=== PATIENT | female | born 1945 | race Caucasian/White ===

== ENCOUNTER 2016-03-03 09:08 | Inpatient (IN) | payer OTHER, MEDICARE ==
[~2016-03-03] VITALS: Ht 154.9 cm; Wt 50.8 kg
--- NOTE | ~2016-03-03 | D ---
[facility] Kaylyn [place] [address] DISCHARGE SUMMARY Name: MARK VILLANUEVA Room #: 213-P [facility] IN M.R.#: [id number] Admission: 03/03/16 Attend Phys: Betina Hall MD Discharge: 03/04/16 Date of : 43 Report #: [id number] THIS REPORT FOR: //name// CC: Betina Stratton [facility] TYPE OF DICTATION: Discharge summary. After jnyr-wc-ycal encounter, I did see the patient and examined her on the day of discharge. DISCHARGE DIAGNOSES: 1. Chest pain, resolved. 2. History of transient ischemic attacks. 3. Hypertension. 4. Dyslipidemia. 5. Rheumatoid arthritis. 6. Fibromyalgia. 7. Sjogren's syndrome. DISCHARGE MEDICATIONS: See discharge summary. HOSPITAL COURSE: The patient was admitted to the hospital secondary to chest pain. The patient was on telemetry and she underwent serial EKGs and troponin, which came back negative. Cardiology was consulted and discussed the case with the patient. She likes to do a test to be sure that everything is okay. Today morning, she went to the medical laboratory scientist and her cath angiogram came back negative. There was no problem with her heart. So, the patient is going home today and to follow with her primary care doctor for possible GERD. <ELECTRONICALLY SIGNED> By: Betina Hall MD 03/13/16 1708 1042 1201 Betina Hall MD /nt
--- NOTE | ~2016-03-03 | H ---
[facility] [place] [address] HISTORY AND PHYSICAL Name: MARK VILLANUEVA Room #: 213-P ADM IN M.R.#: [id number] Admission: 03/03/16 Attend Phys: Betina Hall MD Discharge: Date of : 43 Report #: [id number] THIS REPORT FOR: //name// CC: Betina Stratton [facility] DATE OF SERVICE: 03/03/2016 TYPE OF DICTATION: Admission H and P after nsmo-[id number]-mgxr encounter. CHIEF COMPLAINT: Chest pain. HISTORY OF PRESENT ILLNESS: A 70-year-old female with multiple medical problems, presented to the ER complaining of chest pain and short of breath. This was going on for 3 weeks, but yesterday she woke up in middle of the night with retrosternal crushing chest pain radiating to the left arm, accompanied by short of breath and sweating. The patient did not have any history of cardiovascular disease, but she is hypertensive and she has a history of transient ischemic attacks. She said that her heart was racing strangely also during that episode and she tried to come down to see if this will go away. The pain was started to decrease, but it is still there. REVIEW OF SYSTEMS: Except that mentioned in HPI, all other systems are negative. PAST MEDICAL HISTORY: Include: 1. History of transient ischemic attacks in younger age. 2. Hypertension. 3. Dyslipidemia. 4. Rheumatoid arthritis. 5. Fibromyalgia. 6. Sjogren's syndrome. PAST SURGICAL HISTORY: Includes: 1. Hysterectomy. 2. Tonsillectomy. 3. Rotator cuff surgery. FAMILY HISTORY: Mother has rheumatoid arthritis. Father of coronary artery disease and CVA. SOCIAL HISTORY: She does not smoke or drink or doing any drugs. MEDICATIONS: See admission reconciliation sheet. ALLERGIES: TYLENOL, CIPRO, IBUPROFEN, INDOMETHACIN, LIDOCAINE, MORPHINE, [facility] [address] [place] [address] HISTORY AND PHYSICAL Name: MARK VILLANUEVA Room #: [facility]#: [id number] Admission: 03/03/16 Attend Phys: Betina Hall MD Discharge: Date of : 43 Report #: [id number] NAPROXEN. PHYSICAL EXAMINATION: GENERAL: She is alert, oriented, not in acute distress. VITAL SIGNS: Her temperature 36.8, pulse is 75, respirations 20, blood pressure 161/59. HEENT: PERRLA. Intact extraocular muscles. No icterus. NECK: Supple, no JVD, no bruit, no thyroid. CHEST: Good air entry, both sides. Normal respiratory effort. CARDIOVASCULAR: Regular rate and rhythm. No murmur, rub or gallop. ____ sounds, normal S1 and S2. ABDOMEN: Lax, nontender, positive bowel sounds, no organomegaly appreciated. EXTREMITIES: No cyanosis, clubbing or edema. NEUROLOGIC: Cranial nerves 2-12 are intact. No focal neurological signs. MUSCULOSKELETAL: Normal range of movement and normal inspection of all joints. SKIN: Intact, warm. No ulcers or rashes. PSYCHIATRIC: Normal affect, mood and judgment. LABORATORY DATA: White count is 5.8, hemoglobin 12.3, hematocrit 37.7, normal differential except eosinophilia 7.6%. BUN 22, creatinine 0.9, glucose 100, calcium 9.4. Troponin 0.04. ProBNP is 74. RADIOLOGICAL STUDIES: Chest x-ray: No significant abnormalities. ASSESSMENT AND PLAN: 1. Chest pain. The patient is going to be admitted to telemetry. Her cardiac enzymes and EKGs serial x 3 will be done. She is going to be on a monitor for now. Cardiology already consulted to see the patient and evaluate her. 2. Hypertension, seems to be in good range. We are going to continue home medicines for that. 3. Hyperlipidemia. She has been on statins with no side effects, so we are going to continue that. 4. History of transient ischemic attacks. The patient is going control her blood pressure ____ and aspirin at the same time. 5. The patient is full code. 6. Gastrointestinal and deep venous thrombosis prophylaxis. <ELECTRONICALLY SIGNED> By: Betina Hall MD 03/03/16 1518 1221 1421 Betina Hall MD /nt
--- NOTE | ~2016-03-03 | EKG ---
[address] [address] ELECTROCARDIOGRAM REPORT Name: MARK VILLANUEVA Room #: 213-P [facility] IN .R.#: [id number] Admission: 03/03/16 Attend Phys: Betina Hall MD Discharge: Date of : 43 Report #: [id number] THIS REPORT FOR: //name// [facility] ED Test Date: 2016-03-03 Test Time: 09:12:03 Pat Name: MARK VILLANUEVA Department: Room: 213 Gender: F Firer Kiln: SUJATHA : 1945 Requested By: Marco Antonio De Souza Order Number: [id number] MD: Christo Moser Measurements Intervals [place] Rate: 77 P: 67 ND: 145 QRS: 51 QRSD: 87 T: 42 QT: 355 QTc: 402 Interpretive Statements Sinus rhythm No significant abnormality No previous ECG available for comparison Electronically Signed On 03-04-2016 8:50:00 [employer] by Christo Moser [email or web address] <ELECTRONICALLY SIGNED> By: Christo Moser MD, [facility] 03/04/16 0850 0912 1 Christo Moser MD, FACC /EPI
--- NOTE | ~2016-03-03 | HC ---
[facility] [place] [address] CONSULTATION Name: MARK VILLANUEVA Room #: 213-P [facility] IN ..#: [id number] Admission: 03/03/16 Attend Phys: Betina Hall MD Discharge: Date of : 43 Report #: [id number] THIS REPORT FOR: //name// CC: Betina Genaoe [facility] DATE OF SERVICE: 03/03/2016 INDICATION: Chest pain. HISTORY OF PRESENT ILLNESS: This is a pleasant 70-year-old female presenting with chest pains and shortness of breath. 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 Last evening, she had severe crushing pain in the substernal area, radiating down the left arm and into the back area. It was associated with shortness of breath and diaphoresis. She presented to the ER for an evaluation. There is no history of fever, chills, PND, or orthopnea. PAST MEDICAL HISTORY: History of TIA, hypertension, hyperlipidemia, rheumatoid arthritis, and Sjogren syndrome. ALLERGIES: Include TYLENOL, CIPRO, IBUPROFEN INDOMETHACIN, LIDOCAINE, MORPHINE, . MEDICATIONS: Include amlodipine 5 mg daily, aspirin 81 mg daily, simvastatin 40 mg daily, Carafate, and trazodone. SOCIAL HISTORY: Negative for tobacco use. FAMILY HISTORY: Negative for premature CAD. REVIEW OF SYSTEMS: A full 10-point review of systems performed. Only the pertinent positives and negatives as described in the HPI. PHYSICAL EXAMINATION: VITAL SIGNS: Blood pressure 130/70. Heart is 77 beats per minute. GENERAL APPEARANCE: This is a well-developed, well-nourished female in no acute respiratory distress. HEAD AND EYES: Normocephalic. Sclerae are anicteric. ENT: Oral mucosa moist. NECK: Supple. LUNGS: Clear to auscultation. CARDIAC: Regular rate and rhythm, S1 and S2 positive. ABDOMEN: Soft. EXTREMITIES: No major joint deformities. NEUROLOGIC: Alert and oriented times 3. [facility] [address] [place] [address] CONSULTATION Name: MARK VILLANUEVA Lei Room #: 213-P [facility] IN M.R.#: [id number] Admission: 03/03/16 Attend Phys: Betina Hall MD Discharge: Date of : 43 Report #: [id number] ECG reveals sinus rhythm. LABORATORY VALUES: White count is 5.8 and hemoglobin is 12.3. Sodium is 140 and creatinine is 0.9. Troponin is negative. ASSESSMENT: 1. Unstable angina, her symptoms are worrisome for new onset angina. The initial troponin level is unremarkable and the ECG does not show any acute ST segment changes. Her symptoms have been present for the last three weeks, now occurring at rest. We discussed the pros and cons of noninvasive stress testing versus cardiac catheterization. The patient is concerned about a cardiac status and would like to proceed with a coronary angiogram. 2. Hypertension, continue with medications. 3. Hypercholesterolemia, continue with statin therapy. 4. Remote history of TIA, stable neurologically. 5. Rheumatoid arthritis. Thank you for allowing me to participate in the care of your patient. <ELECTRONICALLY SIGNED> By: New Van MD 03/04/16 0838 1531 0055 New Van MD /nt
--- NOTE | ~2016-03-03 | CATHLAB ---
[facility] Kaylyn Alcocer [place] [address] INVASIVE PROCEDURE REPORT Name: MARK VILLANUEVA Lei Room #: 213-P [facility]#: [id number] Admission: 03/03/16 Attend Phys: Betina Hall, Discharge: 03/04/16 Date of : 43 Date of Service: 03/04/16 0837 Report #: [id number] THIS REPORT FOR: //name// CC: Betina Drake MD DATE OF SERVICE: 03/04/2016 DATE OF SERVICE: 03/04/2016 INDICATIONS: Unstable angina. Full risks, benefits and alternatives of cardiac catheterization were explained to the patient. All questions were answered. Informed consent was obtained. The right groin area was prepped and draped in a sterile manner. Lidocaine was given subcutaneously. A 4-Luxembourgish sheath was inserted into the right femoral artery via modified Seldinger technique. CORONARY ANATOMY: 1. The left main artery is a large caliber vessel, with no flow-limiting lesions. 2. There is mild calcified area in the proximal LAD. The LAD travels down the anterior wall and wraps around the apex. There is only mild disease in the proximal segment, 20%. 3. Left circumflex artery is a moderate sized caliber vessel, dominant, as it supplies the distal PDA. There is only mild plaquing in the proximal segment of the left circumflex artery, 20%. The obtuse marginal arteries have no flow-limiting lesions. The RCA is a small, nondominant vessel with no flow-limiting lesions. A left ventriculogram was performed in the LOREDO projection revealing normal LV systolic function, ejection fraction of 60%. The LVEDP is 9 mmHg. There is no gradient across the outflow tract. IMPRESSION: 1. Mild disease in the LAD and left circumflex artery. 2. Dominant left circumflex artery. 3. Normal LV systolic function. 4. Recommend medical therapy. <ELECTRONICALLY SIGNED> By: New Van MD 03/05/16 0739 0837 0905 New Van MD /nt
[~2016-03-03 09:08] MED LIST: ADULT LOW DOSE81 MG PO; AMLODIPINE BESYL5 MG PO; CARAFATE 1 GM TA1 G1 PO; DESYREL50 MG PO; DHA100 MG PO; DICLOFENAC SODI75 M1 PO; FISHOIL; LOSARTAN-HCTZ1 EAC1 PO; MICARDIS40 MG; NABUMETONE 500500 M1; NEURONTIN 300300 M1 PO; NEXIUM40 MG; OMEPRAZOLE40 MG PO; OSTEO-BI-FLEX; TENEX; TYLENOL ARTHRI650 MG PO; VITAMIN E400 UNIT; ZOCOR 10 MG TAB10 MG PO
[2016-03-03 09:09] VITALS: BP 161/59
[2016-03-03 09:43] LABS: ABSOLUTE NEUTROPHILS 3.4 thou/uL (1.4-8.2); BASOPHILS 1.2 % (0.0-2.0); EOSINOPHILS 7.6 % (0.0-3.0); HEMATOCRIT 37.7 % (37.0-47.0); HEMOGLOBIN 12.3 gm/dL (12.0-15.0); LYMPHOCYTES 25.5 % (24.0-44.0); MCH 29.6 pg (26.0-34.0); MCHC 32.6 % (28.0-37.0); MCV 90.7 fL (80.0-100.0); MONOCYTES 7.5 % (1.0-8.0); PLATELET COUNT 266 thou/uL (150-400); POLYS 58.2 % (36.0-66.0); RBC 4.15 mil/uL (4.20-5.00); RDW 13.8 % (10.5-14.5); WBC 5.8 thou/uL (4.0-11.0)
[2016-03-03] MEDS ORDERED: SIMVASTATIN10 MG PO (09:43)
[2016-03-03] MEDS ORDERED: LOSARTAN-HCTZ1 EAC3 PO (09:43)
[2016-03-03] MEDS ORDERED: TRAZODONE HCL100 MG PO (09:44)
[2016-03-03] MEDS ORDERED: OMEPRAZOLE40 MG PO (09:44)
[2016-03-03] MEDS ORDERED: NORVASC5 MG PO (09:44)
[2016-03-03] MEDS ORDERED: CARAFATE 1 GM TA1 G1 PO (09:44)
[2016-03-03] MEDS ORDERED: GABAPENTIN800 M1 PO (09:45)
[2016-03-03] MEDS ORDERED: VITAMIN D3400 UNIT PO (09:45)
[2016-03-03] MEDS ORDERED: ASPIR 8181 MG PO (09:45)
[2016-03-03 09:46] LABS: MANUAL DIFF NO
[2016-03-03] MEDS ORDERED: CENTRUM SILVER1 EAC4 PO (09:46)
[2016-03-03] MEDS ORDERED: FISH OIL 1,001000 M2 PO (09:46)
[2016-03-03] MEDS ORDERED: SUPER B COMPLE1 EAC2 PO (09:46)
[2016-03-03 09:59] LABS: ANION GAP 8 mmol/L (7-16); BUN 22 mg/dL (7-18); CALCIUM 9.4 mg/dL (8.5-10.1); CHLORIDE 101 mmol/L (98-107); CO2 31 mmol/L (21-32); CREATININE 0.9 mg/dL (0.6-1.3); GLUCOSE 100 mg/dL (70-99); POTASSIUM 3.7 mmol/L (3.5-5.1); SODIUM 140 mmol/L (136-145)
[2016-03-03 10:12] LABS: NT-PRO BRAIN NAT PEPTIDE 74 pg/mL (<300); TROPONIN-I < 0.04 ng/mL (<0.04-0.07)
[2016-03-03 12:03] VITALS: BP 137/58
[2016-03-03 12:45] VITALS: BP 123/50
[2016-03-03] MEDS ORDERED: TYLENOL ARTHRI650 MG PO (13:31)
[2016-03-03] MEDS ORDERED: B COMPLEX # 11 EACH PO (13:35)
[2016-03-03 19:54] VITALS: BP 116/49
[2016-03-04] VITALS (11 sets, daily range): BP systolic 92–126; BP diastolic 44–62
[2016-03-04 02:47] LABS: HEMATOCRIT 38.4 % (37.0-47.0); HEMOGLOBIN 12.4 gm/dL (12.0-15.0); MCH 29.6 pg (26.0-34.0); MCHC 32.3 % (28.0-37.0); MCV 91.5 fL (80.0-100.0); RBC 4.19 mil/uL (4.20-5.00); RDW 13.7 % (10.5-14.5)
[2016-03-04 03:07] LABS: ALBUMIN 3.4 g/dL (3.4-5.0); CALCIUM 9.3 mg/dL (8.5-10.1); CREATININE 0.7 mg/dL (0.6-1.3); POTASSIUM 4.2 mmol/L (3.5-5.1); TOTAL BILIRUBIN 0.4 mg/dL (<0.1-1.0); TOTAL PROTEIN 6.6 g/dL (6.4-8.2)
[2016-03-04 04:29] LABS: APTT 25.1 Seconds (24.5-32.8); PROTIME 10.5 Seconds (9.3-11.4)
== END 2016-03-04 14:55 | disposition home or self-care (01) | DRG 287 ==
LOC: ER 09:08 → EROBS 10:46 → 2N 10:46
PROVIDERS: Hospitalist; Internal Medicine Cardiovascular Disease; Physician Assistant
PROC: 4A023N7 Measurement of Cardiac Sampling and Pressure, Left Heart, Percutaneous Approach (ICD-10-PCS; principal; 2016-03-04)
PROC: B2151ZZ Fluoroscopy of Left Heart using Low Osmolar Contrast (ICD-10-PCS; principal; 2016-03-04)
PROC: B2111ZZ Fluoroscopy of Multiple Coronary Arteries using Low Osmolar Contrast (ICD-10-PCS; principal; 2016-03-04)
DX: I25.110 Atherosclerotic heart disease of native coronary artery with unstable angina pectoris (principal); I10 Essential (primary) hypertension; E78.5 Hyperlipidemia, unspecified; M35.00 Sjogren syndrome, unspecified; M06.9 Rheumatoid arthritis, unspecified; E78.00 Pure hypercholesterolemia, unspecified; M79.7 Fibromyalgia; Z98.49 Cataract extraction status, unspecified eye; Z90.710 Acquired absence of both cervix and uterus; Z86.14 Personal history of Methicillin resistant Staphylococcus aureus infection; Z88.8 Allergy status to other drugs, medicaments and biological substances; Z88.1 Allergy status to other antibiotic agents; Z88.6 Allergy status to analgesic agent; Z91.040 Latex allergy status; Z86.73 Personal history of transient ischemic attack (TIA), and cerebral infarction without residual deficits; Z82.49 Family history of ischemic heart disease and other diseases of the circulatory system; Z82.3 Family history of stroke; Z82.61 Family history of arthritis
CPT/HCPCS: 10081

== ENCOUNTER → 2016-05-02 | Outpatient (CLI) | payer OTHER, MEDICARE ==
[~2016-05-02] VITALS: Ht 152.4 cm; Wt 50.3 kg
[~2016-05-02] MED LIST changes: +ASPIR 8181 MG PO; +B COMPLEX # 11 EACH PO; +CENTRUM SILVER1 EAC4 PO; +FISH OIL 1,001000 M2 PO; +GABAPENTIN800 M1 PO; +LOSARTAN-HCTZ1 EAC3 PO; +NORVASC5 MG PO; +SIMVASTATIN10 MG PO; +SUPER B COMPLE1 EAC2 PO; +TRAZODONE HCL100 MG PO; +VITAMIN D3400 UNIT PO
--- NOTE | ~2016-05-02 | HPC ---
[facility] [place] [address] PAIN MANAGEMENT CONSULTATION Name: MARK VILLANUEVA Room #: REG [facility]#: [id number] Admission: 05/02/16 Attend Phys: Dianelys Grant MD Discharge: Date of : 43 Report #: [id number] THIS REPORT FOR: //name// CC: Dianelys Drake MD DATE OF SERVICE: 05/02/2016 Primary care physician: Viral Drake MD FOLLOWUP COMPLAINT: The pain was greater than 50% better and over the last week noticed that it comes back. FOLLOWUP HISTORY: The patient is a 70-year-old female who has been seen in the pain clinic in the past because of pain in the neck with radiation down into the right shoulder, some anterior chest as well as into the deltoid of her right arm. She underwent an epidural steroid injection in January. She noted a significant improvement in her pain. She had no complications from the last procedure. The patient is expecting a grandchild in 3 days. She would like to undergo an epidural steroid injection so that she could engage in the payal of holding her grandbaby. The patient rates her pain as a 7-8. Pain is made worse when she is lifting, pulling and using her left hand. PHYSICAL EXAMINATION: Blood pressure 151/79, pulse 76, respiratory rate 12, room air saturation is 99%. The patient's height 152 cm, weight 50 kilograms. BMI 21. The patient has pain and discomfort involving the left neck with some pain up in the upper left neck area. She has pain and discomfort in the shoulders as well as some pain in this area of her scapula and pain down into the left arm and discomfort in her deltoid. IMPRESSION: Cervical radiculopathy, which improved greater than 80% after last cervical epidural steroid injection in January. RECOMMENDATIONS: We discussed treatment options with the patient. Risks and benefits of a cervical epidural steroid injection were again reviewed. Possible complications were discussed. The patient elects to proceed. PROCEDURE NOTE: The patient was placed in the prone position. Fluoroscopy was used to identify the C7-T1 interspace. This area had been sterilely prepped with Betadine and infiltrated with 0.25% bupivacaine. A total of 120 mg of triamcinolone was injected after appropriate placement of a 17-gauge Tuohy needle using the loss of resistance technique. The patient tolerated the procedure well. She was taken to the recovery room where she remained for an appropriate amount of time. She will follow up in [place] [address] PAIN MANAGEMENT CONSULTATION Name: MARK VILLANUEVA Room #: REG [facility].#: [id number] Admission: 05/02/16 Attend Phys: Dianelys Grant MD Discharge: Date of : 43 Report #: [id number] Total of 7 seconds fluoroscopy time was used. We would like to thank you for letting us participate in her care. We hope she continues to improve. <ELECTRONICALLY SIGNED> By: Dianelys Grant MD 05/15/16 0914 1248 1750 Dianelys Grant MD /nt
[2016-05-02 09:34] VITALS: BP 151/79
== END | disposition home or self-care (01) ==
LOC: PAIN 07:12
DX: M54.12 Radiculopathy, cervical region (principal)

== ENCOUNTER → 2016-08-13 | Outpatient (CLI) | payer OTHER, MEDICARE ==
[~2016-08-13] VITALS: Ht 152.4 cm; Wt 52.3 kg
--- NOTE | ~2016-08-13 | HPC ---
[facility] [place] [address] PAIN MANAGEMENT CONSULTATION Name: MARK VILLANUEVA Room #: REG [facility]#: [id number] Admission: 08/13/16 Attend Phys: Dianelys Grant MD Discharge: Date of : 43 Report #: [id number] THIS REPORT FOR: //name// CC: Dianelys Drake MD DATE OF SERVICE: 08/13/2016 PRIMARY CARE PHYSICIAN: Viral Drake MD She FOLLOWUP COMPLAINT: Pain improved after the last cervical epidural steroid injection, but still having pain in the left neck area and up into the back of the head. FOLLOWUP HISTORY: The patient is a 70-year-old female who has been seen in the pain clinic because of cervical radiculopathy. She underwent a cervical epidural steroid injection and the pain radiating down into her left arm has improved. She continues to have pain and discomfort in the left occipital area. Palpation in this area causes pain that radiates from her neck to the lateral portion of her temporal area. She rates this pain as a 6/10. She notes that this pain can be problematic with activities of daily living. Certain movements and pressures can exacerbate its discomfort. She would like to undergo treatment for this today. PHYSICAL EXAMINATION: Blood pressure 145/80, pulse 67, respiratory rate 20, room air saturation 91%. The patient has pain and discomfort in the left occipital area. Palpation in the area of the left occipital nerve causes a reproduction of pain in her neck, left side of the head and in the occipital area. This reproduces a significant component of the pain, which the patient has been experiencing at this juncture. IMPRESSION: 1. Occipital neuralgia, left side. 2. Cervical radiculopathy, improved by greater than 80% after last epidural steroid injection. 3. Hypertension. 4. Gastrointestinal complaints. Uses omeprazole. 5. Hypercholesterolemia. RECOMMENDATIONS: We discussed treatment options with the patient. Risks and benefits of an occipital injection for occipital neuralgia were discussed. Possible complications of the procedure were reviewed. The patient elects to proceed. PROCEDURE NOTE: The patient was placed in the prone position. The left [facility] [address] [place] [address] PAIN MANAGEMENT CONSULTATION Name: MARK VILLANUEVA Lei Room #: REG [facility]#: [id number] Admission: 08/13/16 Attend Phys: Dianelys Grant MD Discharge: Date of : 43 Report #: [id number] occipital area was sterilely prepped with a chlorhexidine solution and allowed to dry. A 25-gauge needle was then advanced in the left occipital area. A total of 10 mL of 0.5% bupivacaine and 40 mg triamcinolone was injected. The patient tolerated the procedure well. Pain decreased from 6 to 2 at the time of discharge. She will follow up in the future as needed. We would like to thank you for letting us participate in her care. We hope she continues to improve. <ELECTRONICALLY SIGNED> By: Dianelys Grant MD 08/14/16 0820 1301 2317 Dianelys Grant MD /nt
[2016-08-13 09:47] VITALS: BP 145/80
== END ==
LOC: PAIN 06:45
DX: M54.81 Occipital neuralgia (principal); M54.12 Radiculopathy, cervical region; I10 Essential (primary) hypertension; E78.00 Pure hypercholesterolemia, unspecified

== ENCOUNTER → 2016-10-03 | Outpatient (CLI) | payer OTHER, MEDICARE ==
[~2016-10-03] VITALS: Ht 157.5 cm; Wt 53.1 kg
--- NOTE | ~2016-10-03 | HPC ---
[facility] [address] [place] [address] PAIN MANAGEMENT CONSULTATION Name: MARK VILLANUEVA [facility] #: [facility] [id number] Admission: 10/03/16 Attend Phys: Dianelys Grant MD Discharge: Date of : 43 Report #: [id number] THIS REPORT FOR: //name// CC: Dianelys Drake MD DATE OF SERVICE: 10/03/2016 PRIMARY CARE PHYSICIAN: Viral Drake M.D. FOLLOWUP COMPLAINT: Pain was better by greater than 50% after the last injection, but is starting to recurred. FOLLOWUP HISTORY: The patient is a 70-year-old female who has been seen in the pain clinic because of cervical radiculopathy. She has undergone epidural steroid injections in the cervical area and gleaned benefit from that. She has now noted some recurrence of her pain. She is experiencing pain that radiates down into her left shoulder and has been experiencing some burning discomfort in this area. She noticed worsening of her pain with lifting over head, pulling, using her left arm as well as while driving. PHYSICAL EXAMINATION: VITAL SIGNS: The patient rates her pain as a 7/10. Blood pressure 137/69, pulse 75, respiratory rate 16 and room air saturation 97%. Height 5 feet 2 inches, weight 117 pounds and BMI is 21. MUSCULOSKELETAL: The patient has not fallen since we saw her last. She is experiencing pain and discomfort in the neck radiating down to the left shoulder with burning tenderness and aching. Pain is exacerbated when she posed with her left hand as well as when driving. IMPRESSION: 1. Cervical radiculopathy, which improved greater than 80% after the first cervical epidural steroid injection. 2. Hypertension. 3. Gastrointestinal complaints, continues to use omeprazole as well. 4. Hypercholesterolemia. RECOMMENDATIONS: We will proceed with a cervical epidural steroid injection. Risks and benefits of the injection were discussed and the patient elects to proceed. PROCEDURE NOTE: The patient was placed in the prone position. Fluoroscopy was used to identify the C7-T interspace. This area had been sterilely prepped with Betadine and infiltrated with 0.25% bupivacaine. A total of 120 mg triamcinolone was injected. The patient tolerated [place] [address] PAIN MANAGEMENT CONSULTATION Name: MARK VILLANUEVA Room #: [facility] [id number] Admission: 10/03/16 Attend Phys: Dianelys Grant MD Discharge: Date of : 43 Report #: [id number] were no complications. We would like to thank you for letting us participate in her care. We hope she continues to improve. By: 1657 1806 Dianelys Grant MD /nt
[2016-10-03 09:19] VITALS: BP 137/69
== END | disposition home or self-care (01) ==
LOC: PAIN 09-10 07:01
DX: M54.12 Radiculopathy, cervical region (principal); I10 Essential (primary) hypertension; K92.89 Other specified diseases of the digestive system; E78.00 Pure hypercholesterolemia, unspecified; Z88.8 Allergy status to other drugs, medicaments and biological substances; Z79.899 Other long term (current) drug therapy; Z91.040 Latex allergy status; Z79.82 Long term (current) use of aspirin; Z98.890 Other specified postprocedural states

== ENCOUNTER → 2017-02-20 | Outpatient (CLI) | payer OTHER, MEDICARE ==
[~2017-02-20] VITALS: Ht 157.5 cm; Wt 54.9 kg
--- NOTE | ~2017-02-20 | HPC ---
[facility] [address] [place] [address] PAIN MANAGEMENT CONSULTATION Name: MARK VILLANUEVA Room #: REG [facility] Agustin#: [id number] Admission: 02/20/17 Attend Phys: Dianelys Grant MD Discharge: Date of : 43 Report #: [id number] THIS REPORT FOR: //name// CC: Dianelys Drake MD DATE OF SERVICE: 02/20/2017 CHIEF COMPLAINT: Pain and discomfort in the neck area has returned, but was ____ for a number of months. FOLLOWUP HISTORY: The patient is a 71-year-old female who has been seen in the pain clinic because of cervical radiculopathy. She underwent a cervical epidural steroid injection and gleaned greater than 50% pain relief in September of this year. She returns again today indicating that her pain has increased somewhat. She is experiencing pain which is radiating down into the left portion of her arm with some numbness, tingling and weakness. She noticed that there is some discomfort in her shoulders bilaterally. She does have arthritis. She also has some pain and discomfort in her knees bilaterally. She feels that there is some soreness in the area where the tendons of her thigh meet her knee. Palpation medially and laterally in her knee causes significant amount of discomfort. She has also had a history of bursitis involving the right side. She continues to take medications for her arthritic problems. She would like to proceed today with a cervical epidural steroid injection because of the benefit that she gleaned from it after the last procedure. She and her are in the process of moving. That has exacerbated her pain and discomfort as well with activities associated with that move. PHYSICAL EXAMINATION: Blood pressure 130/46, pulse 77, respiratory rate 14, room air saturation 96%. Height 5 feet 2 inches, weight 121 pounds, BMI is 22. The patient has pain and discomfort, which radiates down into the right arm with numbness and weakness. She also has pain and discomfort in the left knee around the knee area. Palpation around the knee area can cause pain and discomfort with the insertion of the biceps tendon and in the area of the tensor fascia latae of her left leg. IMPRESSION: 1. Cervical radiculopathy, which improves greater than 50% after epidural steroid injection in the past. 2. Hypertension. 3. Gastroesophageal complaints, continue to use omeprazole. 3. Hypercholesterolemia. 4. Knee pain and discomfort with soreness in the medial and lateral areas to palpation. [facility] [address] [place] [address] PAIN MANAGEMENT CONSULTATION Name: MARK VILLANUEVA Room #: REG [facility]#: [id number] Admission: 02/20/17 Attend Phys: Dianelys Grant MD Discharge: Date of : 43 Report #: [id number] RECOMMENDATIONS: We discussed treatment options with the patient again. Possible complications of a cervical epidural steroid injection were again reviewed. They could include but are not limited to infection, increased muscle soreness, headache, bleeding, nerve trauma and the patient elects to proceed. PROCEDURE NOTE: The patient was placed in the prone position. Fluoroscopy was used to identify the C7-T ____ interspace. This area had been sterilely prepped with Betadine and infiltrated with 0.25% bupivacaine. A total of 120 mg triamcinolone was injected. The patient tolerated the procedure well. There were no complications. She remained in the pain clinic for an appropriate amount of time. We would like to thank you for letting us participate in her care. We hope she continues to improve. By: 1528 0042 Dianelys Grant MD /[facility]
[2017-02-20 12:40] VITALS: BP 130/46
== END | disposition home or self-care (01) ==
LOC: PAIN 01-30 06:49
DX: M54.12 Radiculopathy, cervical region (principal); G89.29 Other chronic pain; I10 Essential (primary) hypertension; K21.9 Gastro-esophageal reflux disease without esophagitis; E78.00 Pure hypercholesterolemia, unspecified; M25.562 Pain in left knee; Z98.890 Other specified postprocedural states; Z91.040 Latex allergy status; Z88.8 Allergy status to other drugs, medicaments and biological substances; Z88.6 Allergy status to analgesic agent; Z88.1 Allergy status to other antibiotic agents; Z79.899 Other long term (current) drug therapy; Z79.82 Long term (current) use of aspirin